=== PATIENT | male | born 1985 | race African-American/Black ===

== ENCOUNTER 2017-06-02 18:12 | Emergency (ER) | payer OTHER ==
[~2017-06-02] VITALS: Ht 172.7 cm; Wt 77.6 kg
[~2017-06-02 18:12] MED LIST: ZITHROMAX
[2017-06-02 20:30] LABS: BASOPHIL% 0.5 % (0-2.5); EOSINOPHIL% 0.7 % (0.0-7.0); HEMATOCRIT 41.9 % (38.0-50.0); HEMOGLOBIN 13.6 gm/dL (13.0-16.0); MEAN CELL VOLUME 81.4 FL (83-96); MEAN CORPUSCULAR HEMOGLOBIN 26.5 PG (28-34); MEAN CORPUSCULAR HGB CONC 32.5 g/dL (30-36); MONOCYTE# 0.7 X10e3 (0-1.0); MONOCYTE% 11.3 % (3.0-12.0); NEUTROPHIL# 3.7 X10e3 (1.5-7.1); NEUTROPHIL% 56.5 % (40-75); PLATELET COUNT 325 X10e3 (140-420); RED BLOOD COUNT 5.15 X10e (3.90-5.60); RED CELL DISTRIBUTION WIDTH 15.2 % (11.0-15.5); WHITE BLOOD COUNT 6.5 X10e3 (4.0-10.5)
[2017-06-02 20:31] LABS: DIFF IND NO
[2017-06-02 20:57] LABS: ALBUMIN SERUM 4.6 g/dL (3.5-5.0); ALKALINE PHOSPHATASE 59 U/L (32-92); ALT (SGPT) 34 U/L (10-40); AST (SGOT) 43 U/L (10-42); BILIRUBIN, DIRECT 0.1 mg/dL (0.0-0.2); BILIRUBIN,INDIRECT 0.6 mg/dL (0.0-0.9); BILIRUBIN,TOTAL 0.7 mg/dL (0.2-2.0); BLOOD UREA NITROGEN 13 mg/dL (9-23); BUN/CREATININE RATIO 11.81; CALCIUM SERUM 9.3 mg/dL (8.4-10.2); CARBON DIOXIDE 28 mmol/L (22-31); CHLORIDE 100 mmol/L (100-111); CREATININE SERUM 1.1 mg/dL (0.6-1.4); GLOM FILT RATE Estimated 101.7 mL/min (>60); GLUCOSE FASTING 94 mg/dL (70-110); LIPASE 20 U/L (22-51); POTASSIUM 3.7 mmol/L (3.5-5.1); PROTEIN TOTAL SERUM 8.4 g/dL (6.0-8.3); SODIUM 136 mmol/L (135-145)
[2017-06-02 21:05] LABS: ALCOHOL BLOOD <5 mg/dL (0)
[2017-06-02 21:10] LABS: URINE SOURCE CLEAN CATCH
[2017-06-02 21:26] LABS: URINE APPEARANCE CLEAR; URINE BILIRUBIN NEG (NEG); URINE BLOOD NEG (NEG); URINE COLOR YELLOW; URINE GLUCOSE NEG (NEG); URINE KETONE NEG (NEG); URINE LEUKOCYTE ESTERASE NEG (NEG); URINE NITRATE NEG (NEG); URINE PROTEIN NEG (NEG); URINE UROBILINOGEN 0.2 MG/DL (NEG)
[2017-06-02 21:39] LABS: CULTURE INDICATED? NO
== END 2017-06-02 22:20 | disposition home or self-care (01) ==
LOC: CED 18:12
PROVIDERS: Emergency Medicine
DX: R11.2 Nausea with vomiting, unspecified (principal); F17.200 Nicotine dependence, unspecified, uncomplicated
CPT/HCPCS: 36415; 80048; 80076; 81003; 83690; 85025; 96361; 96374; 99284; G0480; J2405